=== PATIENT | male | born 1935 | race Caucasian/White ===

== ENCOUNTER 2022-01-31 10:58 | Inpatient (IN) ==
[2022-01-31 11:29] LABS: Hematocrit 32.5 % (37.5-50.1); Hemoglobin 10.4 g/dL (12.9-16.9); Mean Corpuscular Hemoglobin 29.5 pg (28.0-33.3); Mean Corpuscular Volume 92.3 fL (83.0-100.0); Mean Platelet Volume 10.1 fL (9.4-12.4); Platelet Count 279 K/mcL (140-400); Red Blood Count 3.52 M/mcL (4.19-5.50); Red Cell Distribution Width 15.2 % (11.5-14.5); White Blood Count 15.5 K/mcL (4.3-11.1)
[2022-01-31 11:43] LABS: INR 3.4; Prothrombin Time 37.4 Seconds (9.4-12.1)
[2022-01-31 11:46] LABS: Activated Partial Thrombo Time 37.6 Seconds (26.0-36.0)
[2022-01-31 11:47] LABS: Bilirubin,Urine Negative (Negative); Blood,Urine Trace-intact (Negative); Clarity,Urine Slightly Cloudy (Clear); Color,Urine Yellow (Yellow); Glucose,Urine (UA) Normal (Normal); Ketones,Urine Negative (Negative); Leukocyte Esterase,Urine Negative (Negative); Nitrite,Urine Negative (Negative); PH,Urine 5.5 pH Units (5.0-8.0); Protein,Urine Trace mg/dL (Neg-Trace); Specific Gravity,Urine 1.015 (1.010-1.025); Urobilinogen,Urine Normal (Normal)
[2022-01-31 11:54] LABS: Lymphocytes # 0.6 K/mcL (0.6-4.6); Neutrophils # 14.9 K/mcL (1.6-8.9); Platelet Estimate Normal (Normal)
[2022-01-31 11:55] LABS: Toxic Vacuolation Present (Not Present)
[2022-01-31] MEDS ORDERED: methylPREDNISolone 125 MG/2 ML VIAL IVP ONE (11:55)
[2022-01-31] MEDS ORDERED: levoFLOXacin 750 MG/150 ML 750 MG/150 ML BAG IVPB ONE (11:55)
[2022-01-31 12:03] LABS: Hyaline Casts,Urine Moderate per lpf (None Seen); Mucus,Urine Few per lpf (None-Few); RBC,Urine 0-3 per hpf (0-3); Squamous Epithelial Cell,Urine Few per hpf (None-Few)
[2022-01-31 12:21] LABS: Troponin I 0.05 ng/mL (< 0.04)
[2022-01-31 12:22] LABS: Albumin 2.7 g/dL (3.5-5.7); Bilirubin,Total 0.4 mg/dL (0.3-1.0); Calcium 8.9 mg/dL (8.6-10.3); Globulin 2.7 g/dL (2.4-3.5); Potassium 4.9 mEq/L (3.5-5.1); Total Protein 5.4 g/dL (6.4-8.9)
[2022-01-31] MEDS: 0.9 % Sodium Chloride 1,000 ML IVC SCH (12:39)
[2022-01-31] MEDS ORDERED: Ondansetron ODT 4 MG TAB.RAPDIS SL PRN (13:27)
[2022-01-31] MEDS ORDERED: Naloxone 0.4 MG/ML INJ IVP PRN (13:27)
[2022-01-31 16:37] LABS: Adenovirus Not Detected (Not Detect); Coronavirus 229E Not Detected (Not Detect); Coronavirus HKU1 Not Detected (Not Detect); Coronavirus NL63 Not Detected (Not Detect); Coronavirus OC43 Not Detected (Not Detect); Human Metapneumovirus Not Detected (Not Detect); Human Rhinovirus/Enterovirus Not Detected (Not Detect); SARS-CoV-2 Not Detected (Not Detect)
[2022-01-31 16:38] LABS: Bordetella Pertussis Not Detected (Not Detect); Chlamydophila pneumoniae Not Detected (Not Detect); Influenza A Subtype 2009 H1 Not Detected (Not Detect); Influenza B Not Detected (Not Detect); Mycoplasma pneumoniae Not Detected (Not Detect); Parainfluenza Virus 1 Not Detected (Not Detect); Parainfluenza Virus 2 Not Detected (Not Detect); Parainfluenza Virus 3 Not Detected (Not Detect); Parainfluenza Virus 4 Not Detected (Not Detect); Respiratory Syncytial Virus Not Detected (Not Detect)
[2022-01-31 17:18] LABS: % Iron Saturation 6 % (20-55); Iron 11 mcg/dL (65-175); Transferrin 136 mg/dL (203-362)
[2022-01-31] MEDS: traZODone 50 MG TABLET PO SCH (21:24)
[2022-01-31] MEDS: Melatonin 3 MG TABLET PO PRN (21:24)
[2022-01-31] MEDS: Apixaban 5 MG TABLET PO SCH (21:25)
[2022-01-31] MEDS: MethylPREDNISolone 40 MG/ML VIAL IVP SCH (21:26)
[2022-01-31] MEDS: Budesonide/Formoterol 160/4.5 1 PUFF INH IH SCH (21:36)
[2022-01-31] MEDS: Ipratropium/Albuterol Neb 3 ML IH PRN (21:47)
[2022-02-01] MEDS: MethylPREDNISolone 40 MG/ML VIAL IVP SCH ×4 (03:12→23:19)
[2022-02-01] MEDS: 0.9 % Sodium Chloride 1,000 ML IVC SCH (05:06)
[2022-02-01 08:01] LABS: Hematocrit 30.9 % (37.5-50.1); Mean Corpuscular HGB Conc 32.4 g/dL (31.6-35.5); Mean Corpuscular Hemoglobin 29.2 pg (28.0-33.3); Mean Corpuscular Volume 90.4 fL (83.0-100.0); Mean Platelet Volume 10.2 fL (9.4-12.4); Platelet Count 272 K/mcL (140-400); Red Blood Count 3.42 M/mcL (4.19-5.50); Red Cell Distribution Width 14.8 % (11.5-14.5); White Blood Count 13.3 K/mcL (4.3-11.1)
[2022-02-01 08:02] LABS: Calcium 9.4 mg/dL (8.6-10.3); Potassium 4.2 mEq/L (3.5-5.1)
[2022-02-01 08:35] LABS: A.calcoaceticus-baumannii cplx Not Detected (Not Detect); Bacteroides fragilis by PCR Not Detected (Not Detect); Candida albicans by PCR Not Detected (Not Detect); Candida auris by PCR Not Detected (Not Detect); Candida glabrata by PCR Not Detected (Not Detect); Candida krusei by PCR Not Detected (Not Detect); Candida parapsilosis by PCR Not Detected (Not Detect); Candida tropicalis by PCR Not Detected (Not Detect); Crypto. neoformans/gattii PCR Not Detected (Not Detect); Enterobacter cloacae Cmplx PCR Not Detected (Not Detect); Enterobacterales by PCR Not Detected (Not Detect); Enterococcus faecalis by PCR DETECTED (Not Detect); Enterococcus faecium by PCR Not Detected (Not Detect); Escherichia coli by PCR Not Detected (Not Detect); Klebs. pneumoniae group by PCR Not Detected (Not Detect); Klebsiella aerogenes by PCR Not Detected (Not Detect); Klebsiella oxytoca by PCR Not Detected (Not Detect); Proteus by PCR Not Detected (Not Detect); Pseudomonas aeruginosa by PCR Not Detected (Not Detect); Salmonella species by PCR Not Detected (Not Detect); Serratia marcescens by PCR Not Detected (Not Detect); Staph epidermidis by PCR Not Detected (Not Detect); Staph lugdunensis by PCR Not Detected (Not Detect); Staphylococcus aureus by PCR Not Detected (Not Detect); Staphylococcus by PCR Not Detected (Not Detect); Stenotrophomonas maltophilia Not Detected (Not Detect); Streptococcus agalactiae(B)PCR Not Detected (Not Detect); Streptococcus by PCR Not Detected (Not Detect); Streptococcus pneumoniae PCR Not Detected (Not Detect); Streptococcus pyogenes (A) PCR Not Detected (Not Detect)
[2022-02-01] MEDS ORDERED: NON-FORMULARY MEDICATION 1 EACH EACH (Omega-3/Dha/Epa/Fish Oil [Fish Oil 1,000 Mg Softgel] PO SCH (09:00)
[2022-02-01] MEDS: Torsemide 20 MG TABLET PO SCH ×2 (09:12→16:19)
[2022-02-01] MEDS: Apixaban 5 MG TABLET PO SCH ×2 (09:12→20:33)
[2022-02-01] MEDS: DilTIAZem CD (24hr) 180 MG CAP.ER.24H PO SCH (09:12)
[2022-02-01] MEDS: Finasteride 5 MG TABLET PO SCH (09:12)
[2022-02-01 09:19] LABS: Lymphocytes # 0.8 K/mcL (0.6-4.6); Monocytes # 0.3 K/mcL (0.0-1.3); Neutrophils # 11.7 K/mcL (1.6-8.9); Platelet Estimate Normal (Normal); Toxic Vacuolation Present (Not Present)
[2022-02-01] MEDS: Ipratropium/Albuterol Neb 3 ML IH PRN (09:40)
[2022-02-01] MEDS: Budesonide/Formoterol 160/4.5 1 PUFF INH IH SCH ×2 (09:40→21:37)
[2022-02-01] MEDS ORDERED: Tiotropium 10 INH DOSE IH SCH (10:00)
[2022-02-01] MEDS: Lactulose Oral Soln 20 GM/30 ML UDC PO SCH ×3 (13:14→20:36)
[2022-02-01] MEDS: traZODone 50 MG TABLET PO SCH (20:33)
[2022-02-01] MEDS: Melatonin 3 MG TABLET PO PRN (20:34)
[2022-02-02 07:29] LABS: Basophils % 0.2 %; Hematocrit 31.4 % (37.5-50.1); Hemoglobin 10.1 g/dL (12.9-16.9); Immature Granulocytes % 1.6 % (0-4); Lymphocytes # 0.3 K/mcL (0.6-4.6); Lymphocytes % 2.3 %; Mean Corpuscular HGB Conc 32.2 g/dL (31.6-35.5); Mean Corpuscular Hemoglobin 29.2 pg (28.0-33.3); Mean Corpuscular Volume 90.8 fL (83.0-100.0); Mean Platelet Volume 10.1 fL (9.4-12.4); Monocytes # 0.3 K/mcL (0.0-1.3); Monocytes % 2.7 %; Neutrophils # 11.2 K/mcL (1.6-8.9); Platelet Count 256 K/mcL (140-400); Red Blood Count 3.46 M/mcL (4.19-5.50); Red Cell Distribution Width 14.9 % (11.5-14.5); Segmented Neutrophils % 93.2 %
[2022-02-02 07:51] LABS: BUN/Creatinine Ratio 35 (6-26); Blood Urea Nitrogen 46 mg/dL (8-23); Calcium 9.5 mg/dL (8.6-10.3); Carbon Dioxide 29 mEq/L (23-29); Chloride 105 mEq/L (98-107); Glucose 199 mg/dL (70-105); Magnesium 2.2 mg/dL (1.6-2.6); Osmolality,Calculated 309 (280-300); Sodium 141 mEq/L (136-145); eGFR For African Americans > 60 (> 60); eGFR For Non-African Americans 52 (> 60)
[2022-02-02 08:30] LABS: Troponin I 0.05 ng/mL (< 0.04)
[2022-02-02] MEDS: Lactulose Oral Soln 20 GM/30 ML UDC PO SCH ×4 (08:32→20:20)
[2022-02-02] MEDS: Torsemide 20 MG TABLET PO SCH ×2 (08:33→16:41)
[2022-02-02] MEDS: Finasteride 5 MG TABLET PO SCH (08:33)
[2022-02-02] MEDS: DilTIAZem CD (24hr) 180 MG CAP.ER.24H PO SCH (08:33)
[2022-02-02] MEDS: Apixaban 5 MG TABLET PO SCH ×2 (08:33→20:17)
[2022-02-02] MEDS ORDERED: levoFLOXacin 750 MG/150 ML 750 MG/150 ML BAG IVPB SCH (09:00)
[2022-02-02] MEDS: Ipratropium/Albuterol Neb 3 ML IH PRN (10:08)
[2022-02-02] MEDS: Budesonide/Formoterol 160/4.5 1 PUFF INH IH SCH ×2 (10:08→21:46)
[2022-02-02] MEDS: traZODone 50 MG TABLET PO SCH (20:17)
[2022-02-02] MEDS: Melatonin 3 MG TABLET PO PRN (23:24)
[2022-02-03] MEDS: Finasteride 5 MG TABLET PO SCH (07:59)
[2022-02-03] MEDS: DilTIAZem CD (24hr) 180 MG CAP.ER.24H PO SCH (07:59)
[2022-02-03] MEDS: Torsemide 20 MG TABLET PO SCH ×2 (08:00→17:37)
[2022-02-03] MEDS: Apixaban 5 MG TABLET PO SCH ×2 (08:00→20:13)
[2022-02-03] MEDS: Lactulose Oral Soln 20 GM/30 ML UDC PO SCH ×3 (08:00→20:12)
[2022-02-03] MEDS ORDERED: Perflutren Lipid Microsphere 1.3 ML in 0.9 % Sodium Chloride 8.7 ML IVP PRN (09:08)
[2022-02-03] MEDS: Budesonide/Formoterol 160/4.5 1 PUFF INH IH SCH ×2 (09:42→22:10)
[2022-02-03] MEDS: Ipratropium/Albuterol Neb 3 ML IH PRN ×2 (09:42→15:06)
[2022-02-03] MEDS ORDERED: DAPTOmycin 550 MG in 0.9 % Sodium Chloride 100 ML IVPB SCH (10:00)
[2022-02-03 17:51] LABS: Bilirubin,Urine Negative (Negative); Blood,Urine Small (Negative); Clarity,Urine Clear (Clear); Color,Urine Yellow (Yellow); Glucose,Urine (UA) Normal (Normal); Ketones,Urine Negative (Negative); Leukocyte Esterase,Urine Negative (Negative); Nitrite,Urine Negative (Negative); PH,Urine 5.5 pH Units (5.0-8.0); Protein,Urine Negative (Neg-Trace); Specific Gravity,Urine 1.015 (1.010-1.025); Urobilinogen,Urine Normal (Normal)
[2022-02-03 17:59] LABS: Amorphous Sediment,Urine Few per hpf (None-Few); Granular Casts,Urine Few per lpf (None Seen); Squamous Epithelial Cell,Urine Few per hpf (None-Few)
[2022-02-03] MEDS: traZODone 50 MG TABLET PO SCH (20:12)
[2022-02-03] MEDS: Melatonin 3 MG TABLET PO PRN (20:19)
[2022-02-04] MEDS: Ipratropium/Albuterol Neb 3 ML IH PRN ×2 (00:31→10:01)
[2022-02-04] MEDS ORDERED: Acetaminophen 325 MG TABLET PO PRN (00:53)
[2022-02-04 06:43] VITALS: BP 117/61; PULSE 76; TEMP 98
[2022-02-04 07:15] LABS: Basophils % 0.3 %; Eosinophils % 0.3 %; Hematocrit 36.3 % (37.5-50.1); Hemoglobin 11.6 g/dL (12.9-16.9); Immature Granulocytes % 4.5 % (0-4); Lymphocytes # 0.6 K/mcL (0.6-4.6); Mean Corpuscular Hemoglobin 28.9 pg (28.0-33.3); Mean Corpuscular Volume 90.5 fL (83.0-100.0); Mean Platelet Volume 9.8 fL (9.4-12.4); Monocytes # 0.8 K/mcL (0.0-1.3); Monocytes % 5.4 %; Neutrophils # 12.3 K/mcL (1.6-8.9); Platelet Count 292 K/mcL (140-400); Red Blood Count 4.01 M/mcL (4.19-5.50); Segmented Neutrophils % 85.5 %; White Blood Count 14.4 K/mcL (4.3-11.1)
[2022-02-04 07:21] LABS: BUN/Creatinine Ratio 30 (6-26); Blood Urea Nitrogen 36 mg/dL (8-23); Calcium 10.1 mg/dL (8.6-10.3); Carbon Dioxide 29 mEq/L (23-29); Chloride 106 mEq/L (98-107); Glucose 149 mg/dL (70-105); Magnesium 2.3 mg/dL (1.6-2.6); Osmolality,Calculated 307 (280-300); Potassium 3.9 mEq/L (3.5-5.1); Sodium 143 mEq/L (136-145); eGFR For African Americans > 60 (> 60); eGFR For Non-African Americans 56 (> 60)
[2022-02-04 08:07] LABS: A.calcoaceticus-baumannii cplx Not Detected (Not Detect); Bacteroides fragilis by PCR Not Detected (Not Detect); Candida albicans by PCR Not Detected (Not Detect); Candida auris by PCR Not Detected (Not Detect); Candida glabrata by PCR Not Detected (Not Detect); Candida krusei by PCR Not Detected (Not Detect); Candida parapsilosis by PCR Not Detected (Not Detect); Candida tropicalis by PCR Not Detected (Not Detect); Crypto. neoformans/gattii PCR Not Detected (Not Detect); Enterobacter cloacae Cmplx PCR Not Detected (Not Detect); Enterobacterales by PCR Not Detected (Not Detect); Enterococcus faecalis by PCR DETECTED (Not Detect); Enterococcus faecium by PCR Not Detected (Not Detect); Escherichia coli by PCR Not Detected (Not Detect); Klebs. pneumoniae group by PCR Not Detected (Not Detect); Klebsiella aerogenes by PCR Not Detected (Not Detect); Klebsiella oxytoca by PCR Not Detected (Not Detect); Proteus by PCR Not Detected (Not Detect); Pseudomonas aeruginosa by PCR Not Detected (Not Detect); Salmonella species by PCR Not Detected (Not Detect); Serratia marcescens by PCR Not Detected (Not Detect); Staph epidermidis by PCR Not Detected (Not Detect); Staph lugdunensis by PCR Not Detected (Not Detect); Staphylococcus aureus by PCR Not Detected (Not Detect); Staphylococcus by PCR Not Detected (Not Detect); Stenotrophomonas maltophilia Not Detected (Not Detect); Streptococcus agalactiae(B)PCR Not Detected (Not Detect); Streptococcus by PCR Not Detected (Not Detect); Streptococcus pneumoniae PCR Not Detected (Not Detect); Streptococcus pyogenes (A) PCR Not Detected (Not Detect); vanA/B Vancomycin-Resist Genes Not Detected (Not Detect)
[2022-02-04] MEDS ORDERED: levoFLOXacin 750 MG/150 ML 750 MG/150 ML BAG IVPB SCH (09:00)
[2022-02-04] MEDS ORDERED: DAPTOmycin 750 MG in 0.9 % Sodium Chloride 100 ML IVPB SCH (09:00)
[2022-02-04] MEDS: Finasteride 5 MG TABLET PO SCH (09:18)
[2022-02-04] MEDS: Apixaban 5 MG TABLET PO SCH (09:18)
[2022-02-04] MEDS: Torsemide 20 MG TABLET PO SCH (09:19)
[2022-02-04] MEDS: DilTIAZem CD (24hr) 180 MG CAP.ER.24H PO SCH (09:19)
[2022-02-04] MEDS: Lactulose Oral Soln 20 GM/30 ML UDC PO SCH ×2 (09:21→09:30)
[2022-02-04] MEDS ORDERED: Isovue-370 500 ML BOTTLE IVP ONE (09:57)
[2022-02-04] MEDS: Budesonide/Formoterol 160/4.5 1 PUFF INH IH SCH (10:01)
[2022-02-04 10:03] VITALS: RESP 18; O2SAT 95
== END 2022-02-04 15:20 | disposition short-term general hospital (02) | DRG 871 ==
LOC: INPPIK 10:58 → EMEROOPIK 10:58 → INPPIK 15:49
PROVIDERS: ADMIT Internal Medicine; ATTEND Internal Medicine

== ENCOUNTER 2022-02-17 15:27 | Inpatient (IN) ==
[2022-02-17] MEDS: Apixaban 5 MG TABLET PO SCH (21:13)
[2022-02-17] MEDS: Gabapentin 300 MG CAPSULE PO SCH (21:13)
[2022-02-17] MEDS: traZODone 50 MG TABLET PO SCH (21:13)
[2022-02-17] MEDS: Ampicillin 2,000 MG in 0.9 % Sodium Chloride Mini Bag 100 ML IVPB SCH (21:14)
[2022-02-17] MEDS: Acetaminophen 325 MG TABLET PO PRN (22:25)
[2022-02-17] MEDS: Budesonide/Formoterol 160/4.5 1 PUFF INH IH SCH (22:30)
[2022-02-18] MEDS: Ampicillin 2,000 MG in 0.9 % Sodium Chloride Mini Bag 100 ML IVPB SCH ×6 (01:04→21:21)
[2022-02-18 07:15] LABS: Basophils # 0.1 K/mcL (0.0-0.2); Basophils % 0.6 %; Eosinophils # 0.2 K/mcL (0.0-0.6); Eosinophils % 2.4 %; Hematocrit 28.9 % (37.5-50.1); Immature Granulocytes % 0.9 % (0-4); Lymphocytes # 0.8 K/mcL (0.6-4.6); Lymphocytes % 10.3 %; Mean Corpuscular HGB Conc 31.1 g/dL (31.6-35.5); Mean Corpuscular Hemoglobin 28.8 pg (28.0-33.3); Mean Corpuscular Volume 92.6 fL (83.0-100.0); Mean Platelet Volume 9.8 fL (9.4-12.4); Monocytes # 0.8 K/mcL (0.0-1.3); Monocytes % 9.6 %; Neutrophils # 5.9 K/mcL (1.6-8.9); Platelet Count 303 K/mcL (140-400); Red Blood Count 3.12 M/mcL (4.19-5.50); Red Cell Distribution Width 15.4 % (11.5-14.5); Segmented Neutrophils % 76.2 %; White Blood Count 7.8 K/mcL (4.3-11.1)
[2022-02-18 07:50] LABS: BUN/Creatinine Ratio 17 (6-26); Blood Urea Nitrogen 19 mg/dL (8-23); Calcium 8.6 mg/dL (8.6-10.3); Carbon Dioxide 32 mEq/L (23-29); Chloride 105 mEq/L (98-107); Glucose 115 mg/dL (70-105); Osmolality,Calculated 295 (280-300); Potassium 3.7 mEq/L (3.5-5.1); Sodium 141 mEq/L (136-145); eGFR For African Americans > 60 (> 60); eGFR For Non-African Americans > 60 (> 60)
[2022-02-18] MEDS ORDERED: Tiotropium 10 INH DOSE IH ONE (07:57)
[2022-02-18] MEDS: Gabapentin 300 MG CAPSULE PO SCH ×2 (08:14→21:21)
[2022-02-18] MEDS: predniSONE 5 MG TABLET PO SCH (08:14)
[2022-02-18] MEDS: Aspirin Enteric Coated 81 MG Tablet PO SCH (08:14)
[2022-02-18] MEDS: DilTIAZem CD (24hr) 180 MG CAP.ER.24H PO SCH (08:14)
[2022-02-18] MEDS: Apixaban 5 MG TABLET PO SCH ×2 (08:15→21:21)
[2022-02-18] MEDS: Cyanocobalamin (B-12) 1,000 MCG TABLET PO SCH (08:15)
[2022-02-18] MEDS: Finasteride 5 MG TABLET PO SCH (08:15)
[2022-02-18] MEDS: Torsemide 20 MG TABLET PO SCH ×2 (08:15→17:08)
[2022-02-18] MEDS: Acetaminophen 325 MG TABLET PO PRN ×2 (08:22→21:20)
[2022-02-18] MEDS: (Omega-3/Dha/Epa/Fish Oil [Fish Oil 1,000 Mg Softgel] PO SCH (08:23)
[2022-02-18] MEDS: Tiotropium 10 INH DOSE IH SCH ×2 (09:26→19:12)
[2022-02-18] MEDS: Budesonide/Formoterol 160/4.5 1 PUFF INH IH SCH ×2 (09:27→21:50)
[2022-02-18] MEDS: traZODone 50 MG TABLET PO SCH (21:21)
[2022-02-19] MEDS: Ampicillin 2,000 MG in 0.9 % Sodium Chloride Mini Bag 100 ML IVPB SCH ×6 (01:31→20:56)
[2022-02-19] MEDS: Gabapentin 300 MG CAPSULE PO SCH ×2 (09:25→20:51)
[2022-02-19] MEDS: Finasteride 5 MG TABLET PO SCH (09:25)
[2022-02-19] MEDS: Torsemide 20 MG TABLET PO SCH ×2 (09:25→17:45)
[2022-02-19] MEDS: Aspirin Enteric Coated 81 MG Tablet PO SCH (09:26)
[2022-02-19] MEDS: DilTIAZem CD (24hr) 180 MG CAP.ER.24H PO SCH (09:26)
[2022-02-19] MEDS: predniSONE 5 MG TABLET PO SCH (09:26)
[2022-02-19] MEDS: Apixaban 5 MG TABLET PO SCH ×2 (09:26→20:51)
[2022-02-19] MEDS: Lactulose Oral Soln 20 GM/30 ML UDC PO PRN (09:26)
[2022-02-19] MEDS: Cyanocobalamin (B-12) 1,000 MCG TABLET PO SCH (09:27)
[2022-02-19] MEDS: (Omega-3/Dha/Epa/Fish Oil [Fish Oil 1,000 Mg Softgel] PO SCH (09:35)
[2022-02-19] MEDS: Tiotropium 10 INH DOSE IH SCH (09:46)
[2022-02-19] MEDS: Budesonide/Formoterol 160/4.5 1 PUFF INH IH SCH ×2 (09:46→22:36)
[2022-02-19] MEDS: traZODone 50 MG TABLET PO SCH (20:50)
[2022-02-20] MEDS: Ampicillin 2,000 MG in 0.9 % Sodium Chloride Mini Bag 100 ML IVPB SCH ×6 (01:23→20:36)
[2022-02-20] MEDS: Cyanocobalamin (B-12) 1,000 MCG TABLET PO SCH (09:21)
[2022-02-20] MEDS: DilTIAZem CD (24hr) 180 MG CAP.ER.24H PO SCH (09:21)
[2022-02-20] MEDS: predniSONE 5 MG TABLET PO SCH (09:21)
[2022-02-20] MEDS: Torsemide 20 MG TABLET PO SCH ×2 (09:21→17:51)
[2022-02-20] MEDS: Gabapentin 300 MG CAPSULE PO SCH ×2 (09:21→20:36)
[2022-02-20] MEDS: Finasteride 5 MG TABLET PO SCH (09:21)
[2022-02-20] MEDS: Aspirin Enteric Coated 81 MG Tablet PO SCH (09:21)
[2022-02-20] MEDS: Apixaban 5 MG TABLET PO SCH ×2 (09:21→20:36)
[2022-02-20] MEDS: (Omega-3/Dha/Epa/Fish Oil [Fish Oil 1,000 Mg Softgel] PO SCH (09:22)
[2022-02-20] MEDS: Budesonide/Formoterol 160/4.5 1 PUFF INH IH SCH ×2 (10:19→21:55)
[2022-02-20] MEDS: Tiotropium 10 INH DOSE IH SCH (10:19)
[2022-02-20] MEDS: traZODone 50 MG TABLET PO SCH (20:36)
[2022-02-21] MEDS: Ampicillin 2,000 MG in 0.9 % Sodium Chloride Mini Bag 100 ML IVPB SCH ×6 (00:18→20:02)
[2022-02-21] MEDS: Cyanocobalamin (B-12) 1,000 MCG TABLET PO SCH (08:46)
[2022-02-21] MEDS: Torsemide 20 MG TABLET PO SCH ×2 (08:46→17:26)
[2022-02-21] MEDS: Finasteride 5 MG TABLET PO SCH (08:47)
[2022-02-21] MEDS: DilTIAZem CD (24hr) 180 MG CAP.ER.24H PO SCH (08:47)
[2022-02-21] MEDS: Gabapentin 300 MG CAPSULE PO SCH ×2 (08:47→20:01)
[2022-02-21] MEDS: Aspirin Enteric Coated 81 MG Tablet PO SCH (08:47)
[2022-02-21] MEDS: Apixaban 5 MG TABLET PO SCH ×2 (08:47→20:01)
[2022-02-21] MEDS: (Omega-3/Dha/Epa/Fish Oil [Fish Oil 1,000 Mg Softgel] PO SCH (08:47)
[2022-02-21] MEDS: predniSONE 5 MG TABLET PO SCH (08:48)
[2022-02-21] MEDS: Acetaminophen 325 MG TABLET PO PRN (08:48)
[2022-02-21] MEDS: Budesonide/Formoterol 160/4.5 1 PUFF INH IH SCH ×2 (10:14→21:59)
[2022-02-21] MEDS: Tiotropium 10 INH DOSE IH SCH (10:15)
[2022-02-21] MEDS: traZODone 50 MG TABLET PO SCH (20:00)
[2022-02-22] MEDS: Ampicillin 2,000 MG in 0.9 % Sodium Chloride Mini Bag 100 ML IVPB SCH ×6 (01:09→21:02)
[2022-02-22] MEDS: Aspirin Enteric Coated 81 MG Tablet PO SCH (08:23)
[2022-02-22] MEDS: Apixaban 5 MG TABLET PO SCH ×2 (08:23→21:02)
[2022-02-22] MEDS: predniSONE 5 MG TABLET PO SCH (08:23)
[2022-02-22] MEDS: Finasteride 5 MG TABLET PO SCH (08:23)
[2022-02-22] MEDS: Acetaminophen 325 MG TABLET PO PRN ×2 (08:23→21:02)
[2022-02-22] MEDS: Cyanocobalamin (B-12) 1,000 MCG TABLET PO SCH (08:23)
[2022-02-22] MEDS: DilTIAZem CD (24hr) 180 MG CAP.ER.24H PO SCH (08:24)
[2022-02-22] MEDS: Torsemide 20 MG TABLET PO SCH ×2 (08:24→18:10)
[2022-02-22] MEDS: Gabapentin 300 MG CAPSULE PO SCH ×2 (08:26→21:01)
[2022-02-22] MEDS: (Omega-3/Dha/Epa/Fish Oil [Fish Oil 1,000 Mg Softgel] PO SCH (08:26)
[2022-02-22] MEDS: Tiotropium 10 INH DOSE IH SCH (09:29)
[2022-02-22] MEDS: Budesonide/Formoterol 160/4.5 1 PUFF INH IH SCH ×2 (09:29→22:20)
[2022-02-22] MEDS ORDERED: Torsemide 20 MG TABLET PO ONE (09:45)
[2022-02-22] MEDS: traZODone 50 MG TABLET PO SCH (21:02)
[2022-02-23] MEDS: Ampicillin 2,000 MG in 0.9 % Sodium Chloride Mini Bag 100 ML IVPB SCH ×6 (00:59→21:00)
[2022-02-23] MEDS: Tiotropium 10 INH DOSE IH SCH (07:52)
[2022-02-23] MEDS: Budesonide/Formoterol 160/4.5 1 PUFF INH IH SCH ×2 (07:52→21:34)
[2022-02-23] MEDS: predniSONE 5 MG TABLET PO SCH (08:32)
[2022-02-23] MEDS: Cyanocobalamin (B-12) 1,000 MCG TABLET PO SCH (08:32)
[2022-02-23] MEDS: Aspirin Enteric Coated 81 MG Tablet PO SCH (08:32)
[2022-02-23] MEDS: Lactobacillus 1 EACH CAP.SPRINK PO SCH (08:32)
[2022-02-23] MEDS: Acetaminophen 325 MG TABLET PO PRN ×2 (08:32→22:06)
[2022-02-23] MEDS: (Omega-3/Dha/Epa/Fish Oil [Fish Oil 1,000 Mg Softgel] PO SCH (08:33)
[2022-02-23] MEDS: Torsemide 20 MG TABLET PO SCH ×2 (08:33→16:26)
[2022-02-23] MEDS: Gabapentin 300 MG CAPSULE PO SCH ×2 (08:33→20:40)
[2022-02-23] MEDS: DilTIAZem CD (24hr) 180 MG CAP.ER.24H PO SCH (08:33)
[2022-02-23] MEDS: Finasteride 5 MG TABLET PO SCH (08:33)
[2022-02-23] MEDS: Apixaban 5 MG TABLET PO SCH ×2 (08:33→20:39)
[2022-02-23 19:12] VITALS: PULSE 70
[2022-02-23] MEDS: traZODone 50 MG TABLET PO SCH (20:39)
[2022-02-24] MEDS: Ampicillin 2,000 MG in 0.9 % Sodium Chloride Mini Bag 100 ML IVPB SCH ×3 (04:04→23:49)
[2022-02-24] MEDS: Acetaminophen 325 MG TABLET PO PRN ×3 (06:12→23:51)
[2022-02-24 07:33] LABS: Basophils # 0.1 K/mcL (0.0-0.2); Basophils % 0.9 %; Eosinophils # 0.4 K/mcL (0.0-0.6); Eosinophils % 4.6 %; Hematocrit 26.7 % (37.5-50.1); Hemoglobin 8.2 g/dL (12.9-16.9); Immature Granulocytes % 1.3 % (0-4); Lymphocytes # 0.7 K/mcL (0.6-4.6); Lymphocytes % 9.3 %; Mean Corpuscular HGB Conc 30.7 g/dL (31.6-35.5); Mean Corpuscular Hemoglobin 28.5 pg (28.0-33.3); Mean Corpuscular Volume 92.7 fL (83.0-100.0); Mean Platelet Volume 8.9 fL (9.4-12.4); Monocytes # 0.9 K/mcL (0.0-1.3); Monocytes % 11.8 %; Neutrophils # 5.6 K/mcL (1.6-8.9); Platelet Count 248 K/mcL (140-400); Red Blood Count 2.88 M/mcL (4.19-5.50); Red Cell Distribution Width 15.2 % (11.5-14.5); Segmented Neutrophils % 72.1 %; White Blood Count 7.8 K/mcL (4.3-11.1)
[2022-02-24 07:59] LABS: Calcium 8.4 mg/dL (8.6-10.3); Potassium 4.2 mEq/L (3.5-5.1)
[2022-02-24] MEDS ORDERED: Ampicillin 2,000 MG in 0.9 % Sodium Chloride Mini Bag 100 ML IVPB SCH (08:00)
[2022-02-24] MEDS: Finasteride 5 MG TABLET PO SCH (08:22)
[2022-02-24] MEDS: Aspirin Enteric Coated 81 MG Tablet PO SCH (08:22)
[2022-02-24] MEDS: Cyanocobalamin (B-12) 1,000 MCG TABLET PO SCH (08:23)
[2022-02-24] MEDS: predniSONE 5 MG TABLET PO SCH (08:23)
[2022-02-24] MEDS: Gabapentin 300 MG CAPSULE PO SCH ×2 (08:23→19:56)
[2022-02-24] MEDS: Lactobacillus 1 EACH CAP.SPRINK PO SCH (08:23)
[2022-02-24] MEDS: DilTIAZem CD (24hr) 180 MG CAP.ER.24H PO SCH (08:23)
[2022-02-24] MEDS: Torsemide 20 MG TABLET PO SCH ×2 (08:23→16:20)
[2022-02-24] MEDS: Apixaban 5 MG TABLET PO SCH ×2 (08:23→19:56)
[2022-02-24] MEDS: (Omega-3/Dha/Epa/Fish Oil [Fish Oil 1,000 Mg Softgel] PO SCH (08:24)
[2022-02-24] MEDS: Lactulose Oral Soln 20 GM/30 ML UDC PO PRN (08:30)
[2022-02-24] MEDS: Tiotropium 10 INH DOSE IH SCH (09:36)
[2022-02-24] MEDS: Budesonide/Formoterol 160/4.5 1 PUFF INH IH SCH ×2 (09:37→21:57)
[2022-02-24] MEDS ORDERED: Albumin 25% 25gram/100mL 25 GM/100 ML IV.SOLN IVPB ONE (17:30)
[2022-02-24] MEDS ORDERED: Furosemide 40 MG/4 ML VIAL IVP ONE (19:30)
[2022-02-24] MEDS: traZODone 50 MG TABLET PO SCH (19:56)
[2022-02-25] MEDS: Acetaminophen 325 MG TABLET PO PRN ×2 (06:45→12:19)
[2022-02-25 07:12] LABS: Basophils % 0.4 %; Eosinophils # 0.3 K/mcL (0.0-0.6); Eosinophils % 3.6 %; Hematocrit 26.5 % (37.5-50.1); Hemoglobin 8.1 g/dL (12.9-16.9); Immature Granulocytes % 0.8 % (0-4); Lymphocytes # 0.8 K/mcL (0.6-4.6); Lymphocytes % 10.6 %; Mean Corpuscular HGB Conc 30.6 g/dL (31.6-35.5); Mean Corpuscular Hemoglobin 27.6 pg (28.0-33.3); Mean Corpuscular Volume 90.4 fL (83.0-100.0); Mean Platelet Volume 9.5 fL (9.4-12.4); Monocytes # 0.8 K/mcL (0.0-1.3); Neutrophils # 5.3 K/mcL (1.6-8.9); Platelet Count 259 K/mcL (140-400); Red Blood Count 2.93 M/mcL (4.19-5.50); Red Cell Distribution Width 15.1 % (11.5-14.5); Segmented Neutrophils % 73.6 %; White Blood Count 7.2 K/mcL (4.3-11.1)
[2022-02-25 07:17] VITALS: BP 142/62; TEMP 97.5
[2022-02-25 07:39] LABS: Calcium 8.3 mg/dL (8.6-10.3); Potassium 4.1 mEq/L (3.5-5.1)
[2022-02-25] MEDS: Budesonide/Formoterol 160/4.5 1 PUFF INH IH SCH (09:43)
[2022-02-25] MEDS: Tiotropium 10 INH DOSE IH SCH (09:44)
[2022-02-25 09:51] VITALS: RESP 18; O2SAT 97
[2022-02-25] MEDS ORDERED: Ampicillin 2,000 MG in 0.9 % Sodium Chloride Mini Bag 100 ML IVPB SCH (10:00)
[2022-02-25] MEDS: Aspirin Enteric Coated 81 MG Tablet PO SCH (10:03)
[2022-02-25] MEDS: Finasteride 5 MG TABLET PO SCH (10:04)
[2022-02-25] MEDS: DilTIAZem CD (24hr) 180 MG CAP.ER.24H PO SCH (10:04)
[2022-02-25] MEDS: Gabapentin 300 MG CAPSULE PO SCH (10:04)
[2022-02-25] MEDS: Lactobacillus 1 EACH CAP.SPRINK PO SCH (10:04)
[2022-02-25] MEDS: predniSONE 5 MG TABLET PO SCH (10:04)
[2022-02-25] MEDS: Cyanocobalamin (B-12) 1,000 MCG TABLET PO SCH (10:05)
[2022-02-25] MEDS: (Omega-3/Dha/Epa/Fish Oil [Fish Oil 1,000 Mg Softgel] PO SCH (10:12)
[2022-02-25] MEDS: Apixaban 5 MG TABLET PO SCH (10:21)
[2022-02-25] MEDS: Ampicillin 2,000 MG in 0.9 % Sodium Chloride Mini Bag 100 ML IVPB SCH (11:10)
[2022-02-25 12:44] LABS: Hematocrit 26.5 % (37.5-50.1); Hemoglobin 8.2 g/dL (12.9-16.9); Mean Corpuscular HGB Conc 30.9 g/dL (31.6-35.5); Mean Corpuscular Hemoglobin 28.5 pg (28.0-33.3); Mean Platelet Volume 8.9 fL (9.4-12.4); Platelet Count 260 K/mcL (140-400); Red Blood Count 2.88 M/mcL (4.19-5.50); Red Cell Distribution Width 15.2 % (11.5-14.5); White Blood Count 8.9 K/mcL (4.3-11.1)
[2022-02-25 12:56] LABS: Bilirubin,Urine Negative (Negative); Blood,Urine Trace-lysed (Negative); Clarity,Urine Clear (Clear); Color,Urine Yellow (Yellow); Glucose,Urine (UA) Normal (Normal); Ketones,Urine Negative (Negative); Leukocyte Esterase,Urine Negative (Negative); Nitrite,Urine Negative (Negative); PH,Urine 5.5 pH Units (5.0-8.0); Protein,Urine 30 mg/dL (Neg-Trace); Urobilinogen,Urine Normal (Normal)
[2022-02-25 13:04] LABS: Amorphous Sediment,Urine Moderate per hpf (None-Few); Squamous Epithelial Cell,Urine Few per hpf (None-Few)
[2022-02-25 13:05] LABS: Granular Casts,Urine Few per lpf (None Seen)
[2022-02-25] MEDS ORDERED: Apixaban 5 MG TABLET PO SCH (21:00)
[2022-02-25 21:36] LABS: Protein/Creatinine Ratio,Urine 0.7 mg/mg (0.00-0.20)
== END 2022-02-25 14:20 | disposition short-term general hospital (02) | DRG 871 ==
LOC: INPPIK 19:56
PROVIDERS: ADMIT Internal Medicine; ATTEND Internal Medicine

== ENCOUNTER 2022-03-12 16:38 | Inpatient (IN) ==
[2022-03-12] MEDS ORDERED: Acetaminophen 325 MG TABLET PO PRN (17:34)
[2022-03-12] MEDS ORDERED: Ondansetron ODT 4 MG TAB.RAPDIS SL PRN (17:34)
[2022-03-12] MEDS ORDERED: DAPTOmycin 500 MG VIAL IVPB SCH (18:00)
[2022-03-12] MEDS ORDERED: Apixaban 5 MG TABLET PO SCH (21:00)
[2022-03-12] MEDS: Gabapentin 300 MG CAPSULE PO SCH (21:55)
[2022-03-12] MEDS: traZODone 50 MG TABLET PO SCH (21:55)
[2022-03-12] MEDS: Torsemide 20 MG TABLET PO SCH (21:55)
[2022-03-12] MEDS: Budesonide/Formoterol 160/4.5 1 PUFF INH IH SCH (22:40)
[2022-03-13 07:54] LABS: Basophils # 0.1 K/mcL (0.0-0.2); Basophils % 0.4 %; Eosinophils # 0.6 K/mcL (0.0-0.6); Hematocrit 25.1 % (37.5-50.1); Hemoglobin 8.1 g/dL (12.9-16.9); Immature Granulocytes % 0.7 % (0-4); Lymphocytes # 0.6 K/mcL (0.6-4.6); Lymphocytes % 4.6 %; Mean Corpuscular HGB Conc 32.3 g/dL (31.6-35.5); Mean Corpuscular Hemoglobin 29.5 pg (28.0-33.3); Mean Corpuscular Volume 91.3 fL (83.0-100.0); Mean Platelet Volume 9.5 fL (9.4-12.4); Monocytes # 0.8 K/mcL (0.0-1.3); Monocytes % 7.1 %; Neutrophils # 9.8 K/mcL (1.6-8.9); Platelet Count 288 K/mcL (140-400); Red Blood Count 2.75 M/mcL (4.19-5.50); Red Cell Distribution Width 15.3 % (11.5-14.5); Segmented Neutrophils % 82.2 %; White Blood Count 11.9 K/mcL (4.3-11.1)
[2022-03-13 08:06] LABS: Calcium 8.9 mg/dL (8.6-10.3); Potassium 3.2 mEq/L (3.5-5.1)
[2022-03-13] MEDS: Meropenem 1,000 MG in 0.9 % Sodium Chloride Mini Bag 100 ML IVPB SCH ×2 (08:11→17:10)
[2022-03-13] MEDS: DilTIAZem CD (24hr) 180 MG CAP.ER.24H PO SCH (08:15)
[2022-03-13] MEDS: predniSONE 5 MG TABLET PO SCH (08:15)
[2022-03-13] MEDS: Cyanocobalamin (B-12) 1,000 MCG TABLET PO SCH (08:15)
[2022-03-13] MEDS: Apixaban 2.5 MG TABLET PO SCH ×2 (08:15→19:54)
[2022-03-13] MEDS: Gabapentin 300 MG CAPSULE PO SCH ×2 (08:15→19:54)
[2022-03-13] MEDS: Finasteride 5 MG TABLET PO SCH (08:15)
[2022-03-13] MEDS: Torsemide 20 MG TABLET PO SCH ×2 (08:15→19:54)
[2022-03-13] MEDS ORDERED: NON-FORMULARY MEDICATION 1 EACH EACH (Omega-3/Dha/Epa/Fish Oil [Fish Oil 1,000 Mg Softgel] PO SCH (09:00)
[2022-03-13] MEDS: Budesonide/Formoterol 160/4.5 1 PUFF INH IH SCH ×2 (10:07→22:54)
[2022-03-13] MEDS: Tiotropium 10 INH DOSE IH SCH (10:08)
[2022-03-13] MEDS: DAPTOmycin 750 MG in 0.9 % Sodium Chloride 100 ML IVPB SCH (13:45)
[2022-03-13] MEDS: traZODone 50 MG TABLET PO SCH (19:54)
[2022-03-14] MEDS: Meropenem 1,000 MG in 0.9 % Sodium Chloride Mini Bag 100 ML IVPB SCH ×2 (05:37→17:28)
[2022-03-14] MEDS: Budesonide/Formoterol 160/4.5 1 PUFF INH IH SCH ×2 (08:07→21:23)
[2022-03-14] MEDS: Tiotropium 10 INH DOSE IH SCH (08:08)
[2022-03-14] MEDS: Apixaban 2.5 MG TABLET PO SCH ×2 (08:36→20:17)
[2022-03-14] MEDS: predniSONE 5 MG TABLET PO SCH (08:37)
[2022-03-14] MEDS: Cyanocobalamin (B-12) 1,000 MCG TABLET PO SCH (08:37)
[2022-03-14] MEDS: Finasteride 5 MG TABLET PO SCH (08:37)
[2022-03-14] MEDS: Gabapentin 300 MG CAPSULE PO SCH ×2 (08:37→20:07)
[2022-03-14] MEDS: DilTIAZem CD (24hr) 180 MG CAP.ER.24H PO SCH (08:37)
[2022-03-14] MEDS: Torsemide 20 MG TABLET PO SCH ×2 (08:37→20:07)
[2022-03-14] MEDS: Lactulose Oral Soln 20 GM/30 ML UDC PO PRN ×2 (13:59→20:17)
[2022-03-14] MEDS ORDERED: *HR* Alteplase (Cathflo) 2 MG VIAL IVP ONE (18:09)
[2022-03-14] MEDS ORDERED: *HR* Water for inj. (sterile) Vial 10 ML IV ONE (18:45)
[2022-03-14] MEDS: traZODone 50 MG TABLET PO SCH (20:07)
[2022-03-15] MEDS: Meropenem 1,000 MG in 0.9 % Sodium Chloride Mini Bag 100 ML IVPB SCH ×2 (06:15→19:39)
[2022-03-15] MEDS: Gabapentin 300 MG CAPSULE PO SCH ×2 (08:20→21:02)
[2022-03-15] MEDS: predniSONE 5 MG TABLET PO SCH (08:20)
[2022-03-15] MEDS: Torsemide 20 MG TABLET PO SCH ×2 (08:21→21:02)
[2022-03-15] MEDS: Finasteride 5 MG TABLET PO SCH (08:21)
[2022-03-15] MEDS: DilTIAZem CD (24hr) 180 MG CAP.ER.24H PO SCH (08:21)
[2022-03-15] MEDS: Cyanocobalamin (B-12) 1,000 MCG TABLET PO SCH (08:25)
[2022-03-15] MEDS: Apixaban 2.5 MG TABLET PO SCH ×2 (08:26→21:05)
[2022-03-15] MEDS: Tiotropium 10 INH DOSE IH SCH (09:37)
[2022-03-15] MEDS: Budesonide/Formoterol 160/4.5 1 PUFF INH IH SCH ×2 (09:37→22:15)
[2022-03-15] MEDS: Sennosides/Docusate Sodium TABLET PO SCH ×2 (14:01→21:04)
[2022-03-15] MEDS: DAPTOmycin 750 MG in 0.9 % Sodium Chloride 100 ML IVPB SCH (14:09)
[2022-03-15] MEDS: traZODone 50 MG TABLET PO SCH (21:04)
[2022-03-16] MEDS: Meropenem 1,000 MG in 0.9 % Sodium Chloride Mini Bag 100 ML IVPB SCH (05:15)
[2022-03-16 06:04] LABS: Hematocrit 24.4 % (37.5-50.1); Hemoglobin 7.7 g/dL (12.9-16.9); Mean Corpuscular HGB Conc 31.6 g/dL (31.6-35.5); Mean Corpuscular Hemoglobin 28.8 pg (28.0-33.3); Mean Corpuscular Volume 91.4 fL (83.0-100.0); Mean Platelet Volume 9.4 fL (9.4-12.4); Platelet Count 279 K/mcL (140-400); Red Blood Count 2.67 M/mcL (4.19-5.50); Red Cell Distribution Width 15.4 % (11.5-14.5); White Blood Count 12.3 K/mcL (4.3-11.1)
[2022-03-16] MEDS: Budesonide/Formoterol 160/4.5 1 PUFF INH IH SCH ×2 (09:14→22:21)
[2022-03-16] MEDS: Tiotropium 10 INH DOSE IH SCH (09:15)
[2022-03-16] MEDS: Cyanocobalamin (B-12) 1,000 MCG TABLET PO SCH (09:29)
[2022-03-16] MEDS: DilTIAZem CD (24hr) 180 MG CAP.ER.24H PO SCH (09:29)
[2022-03-16] MEDS: Sennosides/Docusate Sodium TABLET PO SCH ×2 (09:29→19:58)
[2022-03-16] MEDS: Gabapentin 300 MG CAPSULE PO SCH ×2 (09:29→19:59)
[2022-03-16] MEDS: predniSONE 5 MG TABLET PO SCH (09:29)
[2022-03-16] MEDS: Torsemide 20 MG TABLET PO SCH ×2 (09:29→19:58)
[2022-03-16] MEDS: Finasteride 5 MG TABLET PO SCH (09:30)
[2022-03-16] MEDS: Apixaban 2.5 MG TABLET PO SCH ×2 (09:30→19:59)
[2022-03-16] MEDS: traZODone 50 MG TABLET PO SCH (19:58)
[2022-03-17 07:17] LABS: Basophils % 0.3 %; Eosinophils # 0.9 K/mcL (0.0-0.6); Hematocrit 22.9 % (37.5-50.1); Hemoglobin 7.3 g/dL (12.9-16.9); Lymphocytes # 0.6 K/mcL (0.6-4.6); Lymphocytes % 4.7 %; Mean Corpuscular HGB Conc 31.9 g/dL (31.6-35.5); Mean Corpuscular Hemoglobin 29.8 pg (28.0-33.3); Mean Corpuscular Volume 93.5 fL (83.0-100.0); Mean Platelet Volume 9.6 fL (9.4-12.4); Neutrophils # 10.2 K/mcL (1.6-8.9); Platelet Count 295 K/mcL (140-400); Red Blood Count 2.45 M/mcL (4.19-5.50); Red Cell Distribution Width 15.1 % (11.5-14.5); White Blood Count 12.9 K/mcL (4.3-11.1)
[2022-03-17 07:27] LABS: Calcium 8.7 mg/dL (8.6-10.3); Potassium 3.6 mEq/L (3.5-5.1)
[2022-03-17] MEDS: Finasteride 5 MG TABLET PO SCH (08:57)
[2022-03-17] MEDS: Sennosides/Docusate Sodium TABLET PO SCH ×2 (08:57→21:02)
[2022-03-17] MEDS: Cyanocobalamin (B-12) 1,000 MCG TABLET PO SCH (08:57)
[2022-03-17] MEDS: Apixaban 2.5 MG TABLET PO SCH ×2 (08:57→21:03)
[2022-03-17] MEDS: Gabapentin 300 MG CAPSULE PO SCH ×2 (08:57→21:02)
[2022-03-17] MEDS: DilTIAZem CD (24hr) 180 MG CAP.ER.24H PO SCH (08:58)
[2022-03-17] MEDS: Torsemide 20 MG TABLET PO SCH ×2 (08:58→21:03)
[2022-03-17] MEDS: predniSONE 5 MG TABLET PO SCH (08:58)
[2022-03-17] MEDS ORDERED: 0.9 % Sodium Chloride 250 ML IVC SCH (09:30)
[2022-03-17] MEDS: Tiotropium 10 INH DOSE IH SCH (09:45)
[2022-03-17] MEDS: Budesonide/Formoterol 160/4.5 1 PUFF INH IH SCH ×2 (09:45→21:36)
[2022-03-17] MEDS: DAPTOmycin 750 MG in 0.9 % Sodium Chloride 100 ML IVPB SCH (14:42)
[2022-03-17] MEDS: traZODone 50 MG TABLET PO SCH (21:02)
[2022-03-18] MEDS: Sennosides/Docusate Sodium TABLET PO SCH ×2 (08:14→21:13)
[2022-03-18] MEDS: Torsemide 20 MG TABLET PO SCH ×2 (08:14→21:12)
[2022-03-18] MEDS: Gabapentin 300 MG CAPSULE PO SCH ×2 (08:15→21:12)
[2022-03-18] MEDS: Cyanocobalamin (B-12) 1,000 MCG TABLET PO SCH (08:15)
[2022-03-18] MEDS: Apixaban 2.5 MG TABLET PO SCH ×2 (08:15→21:12)
[2022-03-18] MEDS: Finasteride 5 MG TABLET PO SCH (08:15)
[2022-03-18] MEDS: DilTIAZem CD (24hr) 180 MG CAP.ER.24H PO SCH (08:15)
[2022-03-18] MEDS: predniSONE 5 MG TABLET PO SCH (08:15)
[2022-03-18 09:34] LABS: Hematocrit 29.2 % (37.5-50.1); Hemoglobin 9.2 g/dL (12.9-16.9)
[2022-03-18] MEDS: Budesonide/Formoterol 160/4.5 1 PUFF INH IH SCH ×2 (10:11→22:24)
[2022-03-18] MEDS: Tiotropium 10 INH DOSE IH SCH (10:11)
[2022-03-18] MEDS: Lactulose Oral Soln 20 GM/30 ML UDC PO PRN (14:50)
[2022-03-18] MEDS: traZODone 50 MG TABLET PO SCH (21:12)
[2022-03-19 07:55] LABS: Hematocrit 25.4 % (37.5-50.1); Hemoglobin 8.1 g/dL (12.9-16.9)
[2022-03-19] MEDS: Budesonide/Formoterol 160/4.5 1 PUFF INH IH SCH ×2 (09:10→22:50)
[2022-03-19] MEDS: Tiotropium 10 INH DOSE IH SCH (09:10)
[2022-03-19] MEDS: Finasteride 5 MG TABLET PO SCH (11:02)
[2022-03-19] MEDS: predniSONE 5 MG TABLET PO SCH (11:02)
[2022-03-19] MEDS: Apixaban 2.5 MG TABLET PO SCH ×2 (11:02→20:36)
[2022-03-19] MEDS: Sennosides/Docusate Sodium TABLET PO SCH ×2 (11:02→20:36)
[2022-03-19] MEDS: Gabapentin 300 MG CAPSULE PO SCH ×2 (11:02→20:36)
[2022-03-19] MEDS: Cyanocobalamin (B-12) 1,000 MCG TABLET PO SCH (11:03)
[2022-03-19] MEDS: Torsemide 20 MG TABLET PO SCH ×2 (11:03→20:36)
[2022-03-19] MEDS: DilTIAZem CD (24hr) 180 MG CAP.ER.24H PO SCH (11:03)
[2022-03-19 12:04] LABS: Calcium 9.3 mg/dL (8.6-10.3)
[2022-03-19] MEDS: DAPTOmycin 750 MG in 0.9 % Sodium Chloride 100 ML IVPB SCH (13:15)
[2022-03-19] MEDS: traZODone 50 MG TABLET PO SCH (20:36)
[2022-03-19] MEDS: Lactulose Oral Soln 20 GM/30 ML UDC PO PRN (20:52)
[2022-03-20] MEDS: Finasteride 5 MG TABLET PO SCH (09:58)
[2022-03-20] MEDS: DilTIAZem CD (24hr) 180 MG CAP.ER.24H PO SCH (09:58)
[2022-03-20] MEDS: Gabapentin 300 MG CAPSULE PO SCH ×2 (09:58→23:15)
[2022-03-20] MEDS: Sennosides/Docusate Sodium TABLET PO SCH ×2 (09:58→23:13)
[2022-03-20] MEDS: Torsemide 20 MG TABLET PO SCH ×2 (09:58→23:15)
[2022-03-20] MEDS: predniSONE 5 MG TABLET PO SCH (09:58)
[2022-03-20] MEDS: Cyanocobalamin (B-12) 1,000 MCG TABLET PO SCH (09:58)
[2022-03-20] MEDS: Apixaban 2.5 MG TABLET PO SCH ×2 (10:03→23:13)
[2022-03-20] MEDS: Lactulose Oral Soln 20 GM/30 ML UDC PO PRN (10:03)
[2022-03-20] MEDS: Budesonide/Formoterol 160/4.5 1 PUFF INH IH SCH ×2 (10:47→20:15)
[2022-03-20] MEDS: Tiotropium 10 INH DOSE IH SCH (10:47)
[2022-03-20] MEDS: traZODone 50 MG TABLET PO SCH (23:15)
[2022-03-21 07:04] LABS: Hematocrit 27.3 % (37.5-50.1); Hemoglobin 8.4 g/dL (12.9-16.9); Mean Corpuscular HGB Conc 30.8 g/dL (31.6-35.5); Mean Corpuscular Hemoglobin 28.6 pg (28.0-33.3); Mean Corpuscular Volume 92.9 fL (83.0-100.0); Mean Platelet Volume 9.9 fL (9.4-12.4); Platelet Count 316 K/mcL (140-400); Red Blood Count 2.94 M/mcL (4.19-5.50); Red Cell Distribution Width 15.9 % (11.5-14.5); White Blood Count 16.4 K/mcL (4.3-11.1)
[2022-03-21 07:35] LABS: Calcium 9.2 mg/dL (8.6-10.3); Potassium 3.9 mEq/L (3.5-5.1)
[2022-03-21] MEDS: Gabapentin 300 MG CAPSULE PO SCH ×2 (09:45→21:39)
[2022-03-21] MEDS: Torsemide 20 MG TABLET PO SCH ×2 (09:45→21:38)
[2022-03-21] MEDS: Sennosides/Docusate Sodium TABLET PO SCH ×2 (09:45→21:37)
[2022-03-21] MEDS: Finasteride 5 MG TABLET PO SCH (09:45)
[2022-03-21] MEDS: predniSONE 5 MG TABLET PO SCH (09:45)
[2022-03-21] MEDS: Cyanocobalamin (B-12) 1,000 MCG TABLET PO SCH (09:45)
[2022-03-21] MEDS: DilTIAZem CD (24hr) 180 MG CAP.ER.24H PO SCH (09:45)
[2022-03-21] MEDS: Apixaban 2.5 MG TABLET PO SCH ×2 (09:45→21:38)
[2022-03-21] MEDS: Budesonide/Formoterol 160/4.5 1 PUFF INH IH SCH ×2 (09:59→20:59)
[2022-03-21] MEDS: Tiotropium 10 INH DOSE IH SCH (09:59)
[2022-03-21] MEDS: DAPTOmycin 750 MG in 0.9 % Sodium Chloride 100 ML IVPB SCH (13:59)
[2022-03-21] MEDS: traZODone 50 MG TABLET PO SCH (21:38)
[2022-03-22] MEDS: Budesonide/Formoterol 160/4.5 1 PUFF INH IH SCH ×2 (07:34→21:29)
[2022-03-22] MEDS: Tiotropium 10 INH DOSE IH SCH (07:34)
[2022-03-22 07:37] VITALS: RESP 18
[2022-03-22] MEDS: Sennosides/Docusate Sodium TABLET PO SCH ×2 (08:36→22:02)
[2022-03-22] MEDS: DilTIAZem CD (24hr) 180 MG CAP.ER.24H PO SCH (08:36)
[2022-03-22] MEDS: Apixaban 2.5 MG TABLET PO SCH ×2 (08:36→22:03)
[2022-03-22] MEDS: Torsemide 20 MG TABLET PO SCH ×2 (08:36→22:03)
[2022-03-22] MEDS: predniSONE 5 MG TABLET PO SCH (08:36)
[2022-03-22] MEDS: Finasteride 5 MG TABLET PO SCH (08:37)
[2022-03-22] MEDS: Cyanocobalamin (B-12) 1,000 MCG TABLET PO SCH (08:37)
[2022-03-22] MEDS: Gabapentin 300 MG CAPSULE PO SCH ×2 (08:37→22:03)
[2022-03-22] MEDS: traZODone 50 MG TABLET PO SCH (22:02)
[2022-03-23 07:28] VITALS: BP 125/62; PULSE 71; TEMP 98.6; O2SAT 91
[2022-03-23 07:49] LABS: Basophils # 0.1 K/mcL (0.0-0.2); Basophils % 0.3 %; Eosinophils # 1.7 K/mcL (0.0-0.6); Eosinophils % 10.1 %; Hematocrit 24.6 % (37.5-50.1); Hemoglobin 7.8 g/dL (12.9-16.9); Immature Granulocytes % 0.7 % (0-4); Lymphocytes # 0.5 K/mcL (0.6-4.6); Lymphocytes % 2.8 %; Mean Corpuscular HGB Conc 31.7 g/dL (31.6-35.5); Mean Corpuscular Hemoglobin 29.3 pg (28.0-33.3); Mean Corpuscular Volume 92.5 fL (83.0-100.0); Mean Platelet Volume 9.8 fL (9.4-12.4); Monocytes # 1.3 K/mcL (0.0-1.3); Monocytes % 7.4 %; Neutrophils # 13.3 K/mcL (1.6-8.9); Platelet Count 313 K/mcL (140-400); Red Blood Count 2.66 M/mcL (4.19-5.50); Red Cell Distribution Width 15.8 % (11.5-14.5); Segmented Neutrophils % 78.7 %; White Blood Count 16.9 K/mcL (4.3-11.1)
[2022-03-23] MEDS: Budesonide/Formoterol 160/4.5 1 PUFF INH IH SCH (08:20)
[2022-03-23] MEDS: Tiotropium 10 INH DOSE IH SCH (08:20)
[2022-03-23] MEDS: Cyanocobalamin (B-12) 1,000 MCG TABLET PO SCH (08:31)
[2022-03-23] MEDS: Torsemide 20 MG TABLET PO SCH (08:32)
[2022-03-23] MEDS: Sennosides/Docusate Sodium TABLET PO SCH (08:32)
[2022-03-23] MEDS: Gabapentin 300 MG CAPSULE PO SCH (08:32)
[2022-03-23] MEDS: Finasteride 5 MG TABLET PO SCH (08:32)
[2022-03-23] MEDS: predniSONE 5 MG TABLET PO SCH (08:32)
[2022-03-23] MEDS: DilTIAZem CD (24hr) 180 MG CAP.ER.24H PO SCH (08:32)
[2022-03-23] MEDS: Apixaban 2.5 MG TABLET PO SCH (08:39)
[2022-03-23] MEDS: Lactulose Oral Soln 20 GM/30 ML UDC PO PRN (08:39)
[2022-03-23] MEDS: DAPTOmycin 750 MG in 0.9 % Sodium Chloride 100 ML IVPB SCH (12:25)
== END 2022-03-23 15:18 | disposition home health service (06) | DRG 291 ==
LOC: SUATTDRO 20:13 → INPPIK 20:13
PROVIDERS: ADMIT Internal Medicine; ATTEND Family Medicine